=== PATIENT | female | born 1985 | race Caucasian/White ===

== ENCOUNTER 2022-07-26 10:19 | Outpatient (CLI) | payer BC, SELFPAY ==
[2022-07-26 19:11] LABS: Alanine Aminotransferase 11 U/L (6-35); Albumin Level 4.2 g/dL (3.5-5.1); Alkaline Phosphatase 112 U/L (38-126); Anion Gap 12 mmol/L (8-16); Aspartate Amino Transferase 18 U/L (14-36); Bilirubin,Total 0.2 mg/dL (0.2-1.3); Blood Urea Nitrogen 6 mg/dL (7-17); Carbon Dioxide 24 mmol/L (22-30); Chloride 104 mmol/L (98-107); Estimated Glomerular Filt Rate > 60; Glucose 92 mg/dL (65-110); Potassium 4.2 mmol/L (3.4-5.0); Sodium 140 mmol/L (137-145)
[2022-07-26 19:27] LABS: Vitamin D 25 Hydroxy 31.5 ng/mL
[2022-07-26 19:38] LABS: Basophils Absolute Auto 0.1 K/mm3 (0.0-0.1); Eosinophils Absolute Auto 0.4 K/mm3 (0-0.3); Hematocrit 39.5 % (37.0-47.0); Immature Granulocyte Absolute 0.01 K/mm3 (0.00-0.031); Immature Granulocyte Percent A 0.2 % (0-0.5); Lymphocytes Percent Auto 30.2 % (18.3-44.2); Mean Corpuscular HGB Conc 30.4 g/dl (32-36); Mean Corpuscular Hemoglobin 25.9 pg (26-34); Mean Corpuscular Volume 85.3 fl (80-100); Monocytes Absolute Auto 0.6 K/mm3 (0.1-0.6); Monocytes Percent Auto 8.9 % (2.6-8.5); Neutrophils Absolute Auto 3.3 K/mm3 (1.3-6.7); Neutrophils Percent Auto 52.7 % (45.5-73.1); Platelet Count Result 340 k/mm3 (150-375); Red Blood Count 4.63 M/mm3 (4.2-5.4); Red Cell Distribution Width 17.2 % (11.5-14.5); White Blood Count 6.3 K/mm3 (4.5-10.0)
[2022-07-26 19:41] LABS: Thyroid Stimulating Hormone 0.932 uIU/mL (0.465-4.680)
== END 2022-07-26 10:20 | disposition home or self-care (01) ==
LOC: ANHBWCLAB 10:21
PROVIDERS: PCP Family Medicine; Visit Provider Family Medicine
DX: Z00.00 Encounter for general adult medical examination without abnormal findings (principal)
CPT/HCPCS: 36415; 80053; 82306; 84443; 85025

== ENCOUNTER 2022-12-19 13:18 | Outpatient (CLI) | payer BC, SELFPAY ==
[2022-12-19 20:24] LABS: Appearance Urine Clear (Clear); Bilirubin Urine Negative (Negative); Blood Urine Negative (Negative); Color Urine Yellow (Yellow); Glucose Urine UA Negative (Negative); Ketones Urine Negative (Negative); Leukocyte Esterase Ur Negative LEU/UL (NEGATIVE); Nitrate Urine Negative (Negative); Protein Urine Negative (Negative); Specific Grav Ur 1.015 (1.001-1.035); Urobilinogen Urine 0.2 mg/dL (<2.0)
[2022-12-19 20:25] LABS: Add Urine Microscopic? NO
== END 2022-12-19 13:19 | disposition home or self-care (01) ==
LOC: ANHBWCLAB 13:19
PROVIDERS: PCP Family Medicine; Visit Provider Family Medicine
DX: G89.4 Chronic pain syndrome (principal)
CPT/HCPCS: 81003

== ENCOUNTER 2022-12-20 11:35 | Outpatient (CLI) | payer BC, SELFPAY ==
[2022-12-26 17:01] LABS: Oxidant Negative; pH 7.6
[2022-12-26 17:02] LABS: Barbiturates Negative; Benzodiazepines Negative
[2022-12-26 17:03] LABS: Cocaine Metabolite Negative; Marijuana Metabolite Positive; Methadone Metabolite Negative; Opiates Positive
[2022-12-26 17:04] LABS: Hydrocodone 870; Hydromorphone 910; Morphine Negative; Norhydrocodone 3600
== END 2022-12-20 11:36 | disposition home or self-care (01) ==
LOC: ANHBWCLAB 11:36
PROVIDERS: PCP Family Medicine; Visit Provider Family Medicine
DX: M54.50 Low back pain, unspecified (principal); G89.4 Chronic pain syndrome
CPT/HCPCS: 80299

== ENCOUNTER 2023-06-15 08:41 | Outpatient (CLI) | payer BC, SELFPAY ==
--- NOTE | ~2023-06-15 | XR_ITS ---
Supine view of the abdomen Clinical history: Abdominal distention Findings: Bowel gas pattern is nonspecific. No evidence for obstruction or free air. No abnormal mass lesion or calcification is seen. Lumbar spinal fixation hardware is present setting from L1 through L5, with underlying L3 compression fracture. Impression: Nonspecific bowel gas pattern. L3 compression fracture with posterior fusion hardware extending from L1 through L5. Reviewed, dictated and finalized at location . Impression: Nonspecific bowel gas pattern. L3 compression fracture with posterior fusion hardware extending from L1 throug h L5.
[2023-06-15 19:55] LABS: Appearance Urine Clear (Clear); Bilirubin Urine Negative (Negative); Blood Urine Negative (Negative); Color Urine Yellow (Yellow); Glucose Urine UA Negative (Negative); Ketones Urine Negative (Negative); Leukocyte Esterase Ur Negative LEU/UL (NEGATIVE); Nitrate Urine Negative (Negative); Protein Urine Negative (Negative); Specific Grav Ur 1.008 (1.001-1.035); Urobilinogen Urine 0.2 mg/dL (<2.0); pH Urine 7.5 (5.0-9.0)
[2023-06-15 19:57] LABS: Add Urine Microscopic? NO
== END 2023-06-15 08:42 | disposition home or self-care (01) ==
LOC: ANHBWCLAB 08:43
PROVIDERS: PCP Nurse Practitioner Adult Health; Visit Provider Nurse Practitioner Adult Health
DX: R14.0 Abdominal distension (gaseous) (principal); M48.56XA Collapsed vertebra, not elsewhere classified, lumbar region, initial encounter for fracture
CPT/HCPCS: 74018; 81003

== ENCOUNTER 2023-08-01 11:55 | Outpatient (CLI) | payer BC, SELFPAY ==
--- NOTE | ~2023-08-01 | MMUS_ITS ---
EXAMINATION: MM diagnostic nikhil BI w mary beth, US breast RT limited HISTORY: Palpable right breast abnormality TECHNIQUE: Additional 3-D tomosynthesis images of the breasts were performed and synthetic 2-D images were generated. CAD analysis was submitted and interpreted. High resolution Limited right breast ult rasound was performed. COMPARISON: None BREAST PARENCHYMAL COMPOSITION: The breasts are heterogeneously dense, which may obscure small masses . FINDINGS: MAMMOGRAPHIC FINDINGS: The breasts are extremely dense, which lowers the sensitivity of mammography. There is a mass in the subareolar location of the right breast. ULTRASOUND: Limited right breast ultrasound: At 12:00, 1 cm from the nipple there is an oval hypoechoic mass with heterogeneous internal echotexture measuring 1.5 x 1.3 x 1.4 cm with posterior acoustic enhancement and no internal vascularity. IMPRESSION: 1. Complex 1.5 cm right breast mass corresponding to to the area of palpable concern at 12:00, 1 cm f rom the nipple. 2. Ultrasound-guided right breast vacuum biopsy recommended. BI-RADS category 4, suspicious findings. Reviewed, dictated and finalized at location A. IMPRESSION: 1. Complex 1.5 cm right breast mass corresponding to to the area of palpable co ncern at 12:00, 1 cm from the nipple. 2. Ultrasound-guided right breast vacuum biopsy recommended. BI-RADS category 4, suspicious findings.
== END 2023-08-01 11:56 | disposition home or self-care (01) ==
PROVIDERS: PCP Nurse Practitioner Adult Health; Visit Provider Family Medicine
DX: N64.4 Mastodynia (principal); R92.8 Other abnormal and inconclusive findings on diagnostic imaging of breast
CPT/HCPCS: 76642; 77062; 77066; G0279

== ENCOUNTER 2023-08-21 15:02 | Outpatient (CLI) | payer BC, SELFPAY ==
[2023-08-21 19:26] LABS: Hematocrit 36.7 % (37.0-47.0); Hemoglobin 11.1 g/dL (12.0-15.0); Mean Corpuscular HGB Conc 30.2 g/dl (32-36); Mean Corpuscular Hemoglobin 25.9 pg (26-34); Mean Corpuscular Volume 85.7 fl (80-100); Mean Platelet Volume 9.8 fl (7.4-10.4); Platelet Count Result 320 k/mm3 (150-375); Red Blood Count 4.28 M/mm3 (4.2-5.4); Red Cell Distribution Width 15.3 % (11.5-14.5); White Blood Count 9.7 K/mm3 (4.5-10.0)
[2023-08-21 20:05] LABS: Alanine Aminotransferase 21 U/L (6-35); Albumin Level 4.6 g/dL (3.5-5.1); Alkaline Phosphatase 61 U/L (38-126); Anion Gap 7 mmol/L (8-16); Aspartate Amino Transferase 38 U/L (14-36); Bilirubin,Total 0.7 mg/dL (0.2-1.3); Blood Urea Nitrogen 15 mg/dL (7-17); Calcium 9.3 mg/dL (8.4-10.2); Carbon Dioxide 26 mmol/L (22-30); Chloride 104 mmol/L (98-107); Cholesterol 180 mg/dL (0-200); Estimated Glomerular Filt Rate > 60; Glucose 90 mg/dL (65-110); HDL Direct 83 mg/dL; Potassium 3.8 mmol/L (3.4-5.0); Sodium 137 mmol/L (137-145); Triglycerides 67 mg/dL (<150)
[2023-08-21 20:17] LABS: LDL Cholesterol Direct 77 mg/dL
== END 2023-08-21 15:03 | disposition home or self-care (01) ==
LOC: ANHBWCLAB 15:03
PROVIDERS: PCP Family Medicine; Visit Provider Family Medicine
DX: Z00.00 Encounter for general adult medical examination without abnormal findings (principal); F98.8 Other specified behavioral and emotional disorders with onset usually occurring in childhood and adolescence; G89.4 Chronic pain syndrome; M54.50 Low back pain, unspecified; N63.0 Unspecified lump in unspecified breast; S32.009A Unspecified fracture of unspecified lumbar vertebra, initial encounter for closed fracture; S82.209A Unspecified fracture of shaft of unspecified tibia, initial encounter for closed fracture; S82.409A Unspecified fracture of shaft of unspecified fibula, initial encounter for closed fracture; X58.XXXA Exposure to other specified factors, initial encounter
CPT/HCPCS: 36415; 80053; 80061; 85027

== ENCOUNTER 2024-01-08 12:00 | Outpatient (CLI) | payer BC, SELFPAY ==
[2024-01-11 19:39] LABS: Amphetamines NEGATIVE ng/mL (<500); Barbiturates NEGATIVE ng/mL (<300); Benzodiazepines NEGATIVE ng/mL (<100); Cocaine Metabolite NEGATIVE ng/mL (<100); Codeine NEGATIVE ng/mL (<50); Hydrocodone 1300 ng/mL (<50); Hydromorphone 390 ng/mL (<50); Marijuana Metabolite 1700 ng/mL (<5); Methadone Metabolite NEGATIVE ng/mL (<100); Morphine 74 ng/mL (<50); Norhydrocodone 3100 ng/mL (<50); Opiates POSITIVE ng/mL (<100); Oxidant NEGATIVE mcg/mL (<200); pH 5.9 (4.5-9.0)
== END 2024-01-08 12:01 | disposition home or self-care (01) ==
LOC: ANHBWCLAB 12:01
PROVIDERS: PCP Nurse Practitioner Adult Health; Visit Provider Nurse Practitioner Adult Health
DX: Z79.899 Other long term (current) drug therapy (principal)
CPT/HCPCS: 80299

== ENCOUNTER 2024-01-24 01:16 | Day surgery (SDC) | payer BC, SELFPAY ==
[2024-01-09 15:14] VITALS: BMI 21.4
--- NOTE | 2024-01-24 11:29 | P.PNAN_ITS ---
Anes - Initial Pre Proc Eval Procedure: Operation Date: 01/24/24 12:30 Proposed Procedures p Colonoscopy - Harshad Del Castillo MD Date/Time: 01/24/24 11:29 Surgeon: Harshad Del Castillo MD Pre Op Diagnosis: Other fecal abnormalities Patient Data Age: 38 Gender: F Height: 1.73 m Weight: 64 kg Allergies Allergy/AdvReac Type Severity Reaction Status Date / Time No Known Allergies Allergy Verified 01/09/24 15:12 Home Medications Medication Instructions Recorded Confirmed Type cholecalciferol (vitamin D3) 1,250 1,250 mcg PO WEEKLY #14 caps 07/27/22 01/09/24 Rx mcg (50,000 unit) capsule hydrocodone 5 mg-acetaminophen 325 1 tablet PO Q12H PRN pain #60 tabs 12/09/23 01/09/24 Rx mg tablet methocarbamol 500 mg tablet 500 mg PO DAILY PRN muscle spasms 01/09/24 01/09/24 History Patient hx anesthesia problems: none Family hx anesthesia problems: none Results Review: All pre-operative results and documents have been reviewed as part of the pre-op erative evaluation. [facility] Past Medical History Medical History History of miscarriage Surgical History Surgical History History of back surgery History of dilatation and curettage History of surgery on lower extremity History of tubal ligation [place] teeth removed Family History Family History Mother Depression Grandparent Depression Social History Social History Smoking status: Former smoker Tobacco type: cigarettes Alcohol intake: never Substance use: current Substance use type: marijuana Last use: daily Lack of Transportation: No Lack of Food: Never True Current Housing: I Have Housing Concerned About Future Housing: No Difficulty Paying Gas/Electric Bills: No Difficulty Paying for Meds: No Currently Unemployed: No Education: High School Diploma/GED Difficulty w/ Childcare or Family Care: No Living arrangements: alone Gender identity (if verbalized by the patient): Female Spiritual care concerns: No Agree to blood products: Yes Anes - Eval Final PreProcedure Day of Procedure 01/24/24 11:29 Patient weight: normal Heart: regular rate and rhythm Lungs: clear to auscultation Airway: Mallampati scale class II Neurological: alert and oriented Last oral intake: >/= 8 hours ASA classification: II Emergent: no Anesthetic plan: proceed Anesthesia type and monitoring: general GIVS and standard monitoring Results Review: All pre-operative results and documents have been reviewed as part of the pre- operative evaluation. Ex smoker, 20 pack years, quit approx 11/2023. Informed Consent: The patient's anesthetic plan and its attendant risks and benefits were discussed with the patient/family/POA. Questions were solicited and answers provided to the satisfaction of the patient/family/POA.
[2024-01-24 12:01] VITALS: BP 122/76; PULSE 61; RESP 19; TEMP 36.6; O2SAT 100
[2024-01-24] MEDS: LACTATED RINGERS 1,000 ML 150 ML IV CONT (12:03)
--- NOTE | 2024-01-24 12:35 | PM.HPGS ---
History of Present Illness History of Present Illness Consent: Risks, benefits, and alternatives have been discussed and questions answered. Patient agrees to proceed with procedure. Chief complaint: Other fecal abnormalities Narrative: Zakiya Rosario is a 38 year old female with constipation, never had colonoscopy Review of Systems Review of Systems: All systems reviewed & are unremarkable except as noted in HPI and below PMFSH Past Medical History Medical History History of miscarriage Surgical History Surgical History History of back surgery History of dilatation and curettage History of surgery on lower extremity History of tubal ligation [place] teeth removed Family History Family History Mother Depression Grandparent Depression Social History Social History Smoking status: Former smoker Tobacco type: cigarettes Alcohol intake: never Substance use: current Substance use type: marijuana Last use: daily Lack of Transportation: No Lack of Food: Never True Current Housing: I Have Housing Concerned About Future Housing: No Difficulty Paying Gas/Electric Bills: No Difficulty Paying for Meds: No Currently Unemployed: No Education: High School Diploma/GED Difficulty w/ Childcare or Family Care: No Living arrangements: alone Gender identity (if verbalized by the patient): Female Spiritual care concerns: No Agree to blood products: Yes Meds Home Medications and Allergies Home Medications Medication Instructions Recorded Confirmed Type cholecalciferol (vitamin D3) 1,250 1,250 mcg PO WEEKLY #14 caps 07/27/22 01/09/24 Rx mcg (50,000 unit) capsule hydrocodone 5 mg-acetaminophen 325 1 tablet PO Q12H PRN pain #60 tabs 12/09/23 01/09/24 Rx mg tablet methocarbamol 500 mg tablet 500 mg PO DAILY PRN muscle spasms 01/09/24 01/09/24 History Allergies Allergy/AdvReac Type Severity Reaction Status Date / Time No Known Allergies Allergy Verified 01/24/24 12:00 Vital Signs Vital Signs - 24 hr 01/24/24 12:01 Temperature 98 F Pulse Rate 61 Respiratory Rate 19 Blood Pressure 122/76 Pulse Oximetry 100 Oxygen Delivery Room Air Exam Const: General: comfortable and no acute distress HENMT: Face/Nose/Sinus: Normal nares present Eyes: General: appearance normal, both eyes and all related structures Neck: Neck: no JVD Resp: Auscultation: clear to auscultation bilaterally Cardio: Rate: regular rate Rhythm: regular rhythm GI: Inspection: non-distended GI Palp: Yes Soft to palpation Skin: General skin exam: normal color Neuro: General: gait normal Speech: normal speech Extrem: General: normal to inspection Psych: Mental Status: mental status grossly normal Assessment and Plan Assessment and plan (1) Constipation: Code(s): K59.00 - Constipation, unspecified Status: Acute Assessment and Plan: colonoscopy (2) Change in stool caliber: Code(s): R19.5 - Other fecal abnormalities Status: Acute
[2024-01-24 12:55] VITALS: BP 111/80; PULSE 70; RESP 18; O2SAT 100
[2024-01-24 13:05] VITALS: BP 95/69; PULSE 63; RESP 18; O2SAT 100
[2024-01-24 13:15] VITALS: BP 126/84; PULSE 66; RESP 18; O2SAT 100
== END 2024-01-24 13:18 | disposition home or self-care (01) ==
PROVIDERS: PCP Nurse Practitioner Adult Health; Visit Provider Internal Medicine Gastroenterology
PROC: 0DJD8ZZ Inspection of Lower Intestinal Tract, Via Natural or Artificial Opening Endoscopic (ICD-10-PCS; CPT 45378; principal; 2024-01-24 12:30)
DX: K64.8 Other hemorrhoids (principal); F12.90 Cannabis use, unspecified, uncomplicated; Z87.891 Personal history of nicotine dependence
CPT/HCPCS: 45378; J2704; J7120